=== PATIENT | male | born 2000 | race African-American/Black ===

== ENCOUNTER 2022-10-29 14:57 | Emergency (ER) | payer OTHER ==
[~2022-10-29] VITALS: Ht 193 cm; Wt 86.4 kg
[2022-10-29 15:17] VITALS: BP 127/72; TEMP 97.9; O2SAT 98
== END 2022-10-29 15:54 | disposition home or self-care (01) ==
LOC: M ED 14:57
DX: S80.212A Abrasion, left knee, initial encounter (principal); V48.1XXA Car passenger injured in noncollision transport accident in nontraffic accident, initial encounter

== ENCOUNTER → 2022-12-29 | Outpatient (CLI) | payer OTHER ==
[~2022-12-29] MED LIST: ISOVUE-300 61% 100ML VIAL As Ordered ONE; LIDOCAINE 1% MDV 20ML VIAL As Ordered ONE; PROHANCE 279.3MG/ML 5ML VIAL As Ordered ONE
== END ==
LOC: M RAD 06:30
PROVIDERS: ATTEND Nurse Practitioner Family
DX: M25.512 Pain in left shoulder (principal); S43.402A Unspecified sprain of left shoulder joint, initial encounter; X58.XXXA Exposure to other specified factors, initial encounter; Y92.9 Unspecified place or not applicable
CPT/HCPCS: 23350; 73223; 77002; A9576; Q9967

== ENCOUNTER → 2023-04-07 | Outpatient (CLI) | payer OTHER | LOC: M RAD 09:24 | PROVIDERS: ATTEND Orthopaedic Surgery | DX: M25.312 Other instability, left shoulder (principal) ==

== ENCOUNTER 2024-08-02 09:58 | Emergency (ER) | payer OTHER ==
[~2024-08-02] VITALS: Ht 193 cm; Wt 87.0 kg
[2024-08-02 10:01] VITALS: TEMP 97.8; O2SAT 100
[2024-08-02 13:01] VITALS: BP 113/71
== END 2024-08-02 13:02 | disposition home or self-care (01) ==
LOC: M ED 09:58
DX: S09.90XA Unspecified injury of head, initial encounter (principal); W01.198A Fall on same level from slipping, tripping and stumbling with subsequent striking against other object, initial encounter; R51.9 Headache, unspecified; M54.50 Low back pain, unspecified; Z87.898 Personal history of other specified conditions; Z86.79 Personal history of other diseases of the circulatory system; Z79.01 Long term (current) use of anticoagulants; Y92.009 Unspecified place in unspecified non-institutional (private) residence as the place of occurrence of the external cause; Y93.89 Activity, other specified; Y99.0 Civilian activity done for income or pay